=== PATIENT | male | born 1990 ===

== ENCOUNTER 2022-01-02 12:33 | Emergency (ER) | payer MEDICAID ==
[2022-01-02 13:27] VITALS: BP 117/79
--- NOTE | 2022-01-03 09:14 | Electrocardiograph Report ---
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
== END 2022-01-03 01:39 | disposition left against medical advice (07) ==
LOC: ED 12:33
DX: R07.9 Chest pain, unspecified (principal); Z53.21 Procedure and treatment not carried out due to patient leaving prior to being seen by health care provider
CPT/HCPCS: 93005

== ENCOUNTER 2022-01-02 21:50 | Emergency (ER) | payer SELFPAY ==
[2022-01-02 22:03] VITALS: BP 134/86
--- NOTE | 2022-01-03 09:19 | Electrocardiograph Report ---
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
== END 2022-01-06 10:51 ==
LOC: ED 21:50
DX: R07.9 Chest pain, unspecified (principal); Z53.21 Procedure and treatment not carried out due to patient leaving prior to being seen by health care provider
CPT/HCPCS: 93005